=== PATIENT | female | born 1960 | race Caucasian/White ===

== ENCOUNTER 2024-01-03 11:14 | Emergency (ER) | payer MEDICAID ==
[~2024-01-03] VITALS: Ht 170.2 cm; Wt 81.7 kg
[2024-01-03] MEDS ORDERED: BP MED (11:41)
[2024-01-03] MEDS ORDERED: AMLO10 PO (11:42)
[2024-01-03] MEDS ORDERED: Ketorolac Tromethamine 30mg Vial IM ONE (12:50)
[2024-01-03] MEDS ORDERED: SULTRIDS PO (12:53)
[2024-01-03] MEDS ORDERED: CEPHALEXIN500 M2 PO (12:53)
[2024-01-03] MEDS ORDERED: MUPIROCIN1 G1 TOP (12:53)
== END 2024-01-03 13:06 | disposition home or self-care (01) ==
LOC: ER 11:14
DX: J34.0 Abscess, furuncle and carbuncle of nose (principal); Z79.899 Other long term (current) drug therapy
CPT/HCPCS: 96372; 99282-25; J1885